=== PATIENT | female | born 1935 | race Caucasian/White ===

== ENCOUNTER → 2018-01-10 | Outpatient (CLI) | payer MEDICARE, BC ==
[~2018-01-10] MED LIST: BEDSIDE COMMODE1 MI1; COUM1TAB PO; DICL1KIT5 TOPICAL; DILT120C50 PO; FOSA70TA PO; LORA0.5T PO; MACR100C2 PO; NORC5TAB PO; TAMS0.4C4 PO; TIMO0.5S30 EACH EYE; TRAM50TA PO; WALKER WHEELS/F1 MIS
[2018-01-10 14:06] LABS: AUTOMATED NEUTROPHIL # 5.5 TH/MM3 (1.8-7.7); BASOPHIL # 0.1 TH/MM3 (0-0.2); BASOPHIL % 0.7 % (0.0-2.0); EOSINOPHIL # 0.2 TH/MM3 (0-0.4); EOSINOPHIL % 2.1 % (0.0-4.0); HEMATOCRIT 40.7 % (35.0-46.0); HEMOGLOBIN 13.9 GM/DL (11.6-15.3); LYMPH % 11.8 % (9.0-44.0); LYMPHOCYTE # 0.9 TH/MM3 (1.0-4.8); MEAN CELL VOLUME 100.8 FL (80.0-100.0); MEAN CORPUSCULAR HEMOGLOBIN 34.3 PG (27.0-34.0); MEAN CORPUSCULAR HGB CONC 34.1 % (32.0-36.0); MEAN PLATELET VOLUME 9.2 FL (7.0-11.0); MONO % 13.4 % (0.0-8.0); PLATELET COUNT 270 TH/MM3 (150-450); RED BLOOD COUNT 4.04 MIL/MM3 (4.00-5.30); RED CELL DISTRIBUTION WIDTH 12.8 % (11.6-17.2); WHITE BLOOD COUNT 7.7 TH/MM3 (4.0-11.0)
[2018-01-10 14:36] LABS: BACTERIA, URINE OCC /hpf; BILIRUBIN, URINE NEG (NEG); BLOOD, URINE TRACE (NEG); GLUCOSE,URINE NEG (NEG); HYALINE CAST, URINE 3 /lpf (RARE); KETONE, URINE NEG (NEG); MUCUS URINE FEW /lpf (OCC); NITRITE,URINE NEG (NEG); PH, URINE 6.5 (5.0-8.5); SQUAMOUS EPITHELIAL CELL URINE 21 /hpf (0-5); TRANSITIONAL EPI CELLS, URINE 4 /hpf; URINE COLOR YELLOW (YELLW/STRAW); URINE LEUKOCYTE ESTERASE LARGE (NEG)
[2018-01-10 14:40] LABS: BICARBONATE 32.8 MEQ/L (21.0-32.0); CALCIUM 9.4 MG/DL (8.5-10.1); CREATININE 0.51 MG/DL (0.50-1.00)
--- NOTE | 2018-01-11 18:30 | EKG ---
Date Performed: 01/10/2018 Time Performed: 12:06:40 PTAGE: 82 years EKG: Sinus rhythm NORMAL ECG NO PREVIOUS TRACING DOCTOR: Baldo Burch Interpretating Date/Time 01/11/2018 18:28:08
== END ==
LOC: CPRE 11:32
PROVIDERS: ATTEND Orthopaedic Surgery Orthopaedic Surgery of the Spine
DX: Z01.812 Encounter for preprocedural laboratory examination (principal); Z01.810 Encounter for preprocedural cardiovascular examination; M16.11 Unilateral primary osteoarthritis, right hip; R82.99 Other abnormal findings in urine
CPT/HCPCS: 36415; 80048; 81001; 85025; 87086; 93005

== ENCOUNTER 2018-01-17 09:43 | Inpatient (IN) | payer MEDICARE, BC ==
[~2018-01-17] VITALS: Ht 154.9 cm; Wt 48.7 kg
[~2018-01-17 09:43] MED LIST changes: -BEDSIDE COMMODE1 MI1; -COUM1TAB PO; -MACR100C2 PO; -NORC5TAB PO; -TAMS0.4C4 PO; -WALKER WHEELS/F1 MIS
[2018-01-17] MEDS ORDERED: POVIDONE IODINE 5% (ANTISEPSIS KIT) 4 APPLICATIONS EACH NARE PRN (10:45)
[2018-01-17] MEDS ORDERED: METOPROLOL TARTRATE 25 MG TAB PO PRN (10:45)
[2018-01-17] MEDS ORDERED: INSULIN HUMAN REGULAR 1,000 UNITS/10 ML VIAL SQ PRN (10:45)
[2018-01-17] MEDS ORDERED: VANCOMYCIN 1000 MG/NS 250 ML (for <70 kg) IV SCH ×2 (10:45)
[2018-01-17] MEDS ORDERED: CHLORHEXIDINE GLUCONATE 2 % 1 PACK (2 CLOTHS) TOPICAL PRN (10:45)
[2018-01-17] MEDS ORDERED: LACTATED RINGER'S 1000 ML IV PRN (10:45)
[2018-01-17] MEDS ORDERED: CHLORHEXIDINE GLUCONATE 4% SOLN 120 ML BTL TOPICAL SCH (10:45)
[2018-01-17] MEDS ORDERED: SODIUM CHLORID 0.9% 500 ML IV PRN (10:45)
[2018-01-17] MEDS ORDERED: ceFAZolin 2 GM PREMIX 50 ML IV SCH (10:45)
[2018-01-17] MEDS ORDERED: LIDOCAINE HCL 1% PF 5 ML SYRINGE OTHER ONE (12:00)
[2018-01-17] MEDS ORDERED: ceFAZolin INJ 1,000 MG VIAL IV ONE (12:00)
[2018-01-17] MEDS ORDERED: ROCURONIUM INJ 50 MG/5 ML SYRINGE IV PUSH ONE (12:00)
[2018-01-17] MEDS ORDERED: PROPOFOL 200 MG/20 ML AMP IV ONE (12:00)
[2018-01-17] MEDS ORDERED: ONDANSETRON HCL 4 MG/2 ML VIAL IV ONE (12:00)
[2018-01-17] MEDS ORDERED: ePHEDrine/NS 25 MG/5 ML SYRINGE IV ONE (12:00)
[2018-01-17] MEDS ORDERED: GLYCOPYRROLATE 1 MG/5 ML SYRINGE IV PUSH ONE (12:00)
[2018-01-17] MEDS ORDERED: PHENYLEPH/NS 1000 MCG/10 ML SYR IV ONE (12:00)
[2018-01-17] MEDS ORDERED: NEOSTIGMINE 5 MG/5 ML SYRINGE IV PUSH ONE (12:00)
[2018-01-17] MEDS ORDERED: GENTAMICIN SULFATE 80 MG/2 ML VIAL ONE (12:42)
[2018-01-17] MEDS ORDERED: DO NOT ADM ANY ANTICOAGULANT DRUGS PRN (15:30)
[2018-01-17] MEDS ORDERED: Post-op Orders (for Pharmacy) XX ONE (15:30)
--- NOTE | 2018-01-17 15:36 | HHI.FF ---
Face to Face Verification Diagnosis: (1) Fracture of femoral neck, late effect (2) Osteoarthritis of right hip (3) Osteonecrosis of right hip Physical Therapy Gait training Hip: Total hip, Protocol: Right, Posterior hip precautions Right LE Weight Bearing: WB as tolerated Left LE Weight Bearing: WB as tolerated Nursing RN Days per Week: 3 x Week(s): 4 Nursing: Dressing changes (clean incision with alcohol and apply dry sterile dressing ) Additional Instructions Pt/INR q Wednesday and , call/text results to Dimple MCCLURE [phone] Goal INR 1.5-1.8 I have seen patient Angelina Leavitt on 01/17/18. My clinical findings support the need for the requested home health care services because: High risk of falls I certify that my clinical findings support that this patient is homebound because: Post-op weakness Berny Torre MD Jan 17, 2018 15:36
[2018-01-17] MEDS ORDERED: WALKER WHEELS/F1 MIS (15:37)
[2018-01-17] MEDS ORDERED: MORPHINE SULFATE 4 MG/ML INJ ONE (15:37)
[2018-01-17] MEDS ORDERED: BEDSIDE COMMODE1 MI1 (15:37)
--- NOTE | 2018-01-17 15:37 | HHI.PR ---
Immediate Post Op Note Procedure Date: Jan 17, 2018 Pre Op Diagnosis: R Hip Femoral Neck Fx non-union,OA,ON;S/P R Hip FN Fx ORIF Post Op Diagnosis: Same Surgeon: Berny Torre MD Acetylene Burner(s): Dimple Johnson PA-C Procedure: R THR conversion from previous hip surgery Complications: None Specimen(s) removed: None Estimated blood loss: 300cc Anesthesia: General Drains: None Patient to: PACU Patient Condition: Good Implant/Devices: SEE IMPLANT LOG (if applicable) Date/Time of Procedure: SEE SURGICAL CARE RECORD Berny Torre MD Jan 17, 2018 15:37
[2018-01-17] MEDS ORDERED: *morphine SULFATE 10 MG/ML PERIprocedure ONLY ONE (15:38)
[2018-01-17] MEDS: LACTATED RINGER'S 1000 ML INJ 1,000 ML IV SCH (15:45)
[2018-01-17] MEDS ORDERED: ALUMINUM/MAGNESIUM/SIMETH 30 ML CUP PO PRN (16:00)
[2018-01-17] MEDS ORDERED: ONDANSETRON HCL 4 MG/2 ML VIAL IVP PRN (16:00)
[2018-01-17] MEDS ORDERED: ZOLPIDEM TARTRATE 5 MG TAB PO PRN (16:00)
--- NOTE | 2018-01-17 16:37 | RADRPT ---
EXAM DATE/TIME: 01/17/2018 15:37 [facility] COMPARISON: No previous studies available for comparison. INDICATIONS : Post right hip arthroplasty MEDICAL HISTORY : Arthritis. SURGICAL HISTORY : None. ENCOUNTER: Initial ACUITY: 1 day PAIN SCORE: Non-responsive. LOCATION: Right Hip FINDINGS: Postoperative findings from noncemented total hip arthroplasty on the right side with prominent areas of deep soft tissue gas. The alignment of the hip endoprosthesis is maintained. There is diffuse o steopenia with intact bony pelvic ring. CONCLUSION: Expected postoperative findings (soft tissue gas) from right total hip arthroplasty. Kushal Flores MD on January 17, 2018 at 16:34 Board Certified Radiologist. This report was verified electronically.
[2018-01-17 19:29] VITALS: BP 114/53; PULSE 75; RESP 18; TEMP 96.7; O2SAT 99
[2018-01-17] MEDS: MORPHINE SULFATE 8 MG/ML INJ IV PUSH PRN (20:02)
[2018-01-17 23:30] VITALS: BP 129/58; PULSE 86; RESP 17; TEMP 97.3; O2SAT 97
[2018-01-18] VITALS (7 sets, daily range): BP systolic 107–136; BP diastolic 55–63; PULSE 80–100; RESP 16–18; TEMP 95.8–97.7; O2SAT 95–100
[2018-01-18] MEDS: ACETAMINOPHEN/HYDROcodone 325 MG/5 MG TAB PO PRN ×4 (00:16→21:41)
[2018-01-18] MEDS: MORPHINE SULFATE 8 MG/ML INJ IV PUSH PRN ×2 (03:10→11:59)
[2018-01-18] MEDS: LACTATED RINGER'S 1000 ML INJ 1,000 ML IV SCH ×2 (05:49→15:00)
--- NOTE | 2018-01-18 06:49 | PD.ORT.PN ---
Subjective Subjective Remarks POD#1 R THR C/O post op pain No c/o chest pain/sob Explained to patient operative findings Objective Vitals Vital Signs Date Time Temp Pulse Resp B/P (MAP) Pulse Ox O2 Delivery O2 Flow Rate FiO2 01/18/18 04:30 97.7 82 16 107/59 (75) 98 01/17/18 23:30 97.3 86 17 129/58 (81) 97 01/17/18 19:29 96.7 75 18 114/53 (73) 99 01/17/18 19:00 64 12 104/54 (71) 100 Nasal Cannula 2 01/17/18 18:00 68 24 116/58 (77) 95 Nasal Cannula 2 01/17/18 17:00 97.1 59 12 107/53 (71) 100 Nasal Cannula 2 01/17/18 16:30 57 12 98/50 (66) 100 Nasal Cannula 2 01/17/18 16:15 56 12 95/52 (66) 100 Nasal Cannula 2 01/17/18 16:00 61 12 98/52 (67) 100 Nasal Cannula 2 01/17/18 15:45 65 23 103/56 (72) 98 Nasal Cannula 4 01/17/18 15:28 97.2 74 12 98/56 (70) 96 Nasal Cannula 4 01/17/18 11:08 98.3 79 20 144/75 (98) 100 I/O 01/17/18 01/17/18 01/17/18 01/18/18 01/18/18 01/18/18 07:00 15:00 23:00 07:00 15:00 23:00 Intake Total 700 ml 480 ml Output Total 300 ml Balance 400 ml 480 ml Intake Oral 480 ml IV Total 700 ml Output Estimated Blood Loss 300 ml # Voids 0 # Bowel Movements 0 Objective Remarks N/V intact No calf tenderness;neg manny's sign No LLD Assessment & Plan Assessment and Plan Ortho stable PT/Rehab D/C home tomorrow Coumadin,TEDS,sequentials for DVT prophylaxsis Berny Torre MD Jan 18, 2018 06:49
[2018-01-18 07:13] LABS: HEMOGLOBIN 9.8 GM/DL (11.6-15.3)
[2018-01-18 07:18] LABS: INTERNATIONAL NORMALIZED RATIO 1.4 RATIO
[2018-01-18] MEDS: DILTIAZEM-CD 120 MG CAP ER PO SCH (08:04)
[2018-01-18] MEDS: TIMOLOL MALEATE 0.5% OPHT SOLN 5 ML BTL EACH EYE SCH (08:35)
[2018-01-18] MEDS ORDERED: PNEUMOCOCCAL POLYVALENT INJ 25 MCG/0.5 ML SYR IM ONE (10:00)
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
[2018-01-18] MEDS ORDERED: DO NOT ADM ANY ANTICOAGULANT DRUGS OTHER PRN (14:45)
[2018-01-18] MEDS: WARFARIN SOD 1 MG TAB PO SCH (15:00)
[2018-01-18] MEDS: LORazepam 0.5 MG TAB PO PRN (15:05)
[2018-01-18] MEDS: DOCUSATE SODIUM 100 MG CAP PO SCH (21:40)
[2018-01-19] VITALS (7 sets, daily range): BP systolic 110–141; BP diastolic 57–70; PULSE 90–116; RESP 16–18; TEMP 95.5–98; O2SAT 94–99
[2018-01-19] MEDS: LACTATED RINGER'S 1000 ML INJ 1,000 ML IV SCH ×2 (05:30→15:46)
[2018-01-19] MEDS: ACETAMINOPHEN/HYDROcodone 325 MG/5 MG TAB PO PRN ×4 (05:58→16:57)
[2018-01-19 06:54] LABS: INTERNATIONAL NORMALIZED RATIO 1.7 RATIO; PROTHROMBIN TIME - PATIENT 17.2 SEC (9.8-11.6)
--- NOTE | 2018-01-19 07:54 | PD.ORT.PN ---
Subjective Subjective Remarks pt doing well, states she slept very well last night ready to be discharged home today Objective Vitals Vital Signs Date Time Temp Pulse Resp B/P (MAP) Pulse Ox O2 Delivery O2 Flow Rate FiO2 01/19/18 06:59 18 01/19/18 01:30 98.0 93 18 116/57 (76) 94 01/18/18 21:55 96.6 86 17 136/63 (87) 95 01/18/18 21:08 95 01/18/18 16:23 18 01/18/18 16:00 95.8 80 18 111/58 (75) 100 01/18/18 12:12 18 01/18/18 11:48 96.6 100 18 115/55 (75) 97 01/18/18 10:10 95 21 I/O 01/18/18 01/18/18 01/18/18 01/19/18 01/19/18 01/19/18 07:00 15:00 23:00 07:00 15:00 23:00 Intake Total 2060 ml 720 ml 480 ml Output Total 600 ml 500 ml 550 ml 1500 ml Balance 1460 ml 220 ml -550 ml -1020 ml Intake Oral 960 ml 720 ml 480 ml IV Total 1100 ml Output Urine Total 600 ml 500 ml 550 ml 1500 ml Bladder Scan Volume Amount 313 ml 340 ml 340 ml # Voids 0 1 # Bowel Movements 0 0 0 Result Diagram: 01/18/18 0420 Other Results Laboratory Tests Test 01/19/18 06:16 Prothromb Time International Ratio 1.7 RATIO Prothrombin Time 17.2 SEC (9.8-11.6) Objective Remarks right hip dressing dry and intact N/V intact No calf tenderness;neg manny's sign No LLD Assessment & Plan Assessment and Plan POD # 2 s/p R rev EMY Ortho stable PT/Rehab anticipate discharge home today if stable was approached by nurse who voiced patient has been having difficulty voiding and koch had to be placed yesterday recommend d/c koch and if still having problems voiding, contact our office Coumadin 1 mg every other day, TEDS,sequentials for DVT prophylaxis Dimple Johnson Jan 19, 2018 07:54
[2018-01-19] MEDS: DILTIAZEM-CD 120 MG CAP ER PO SCH (08:15)
[2018-01-19] MEDS: TIMOLOL MALEATE 0.5% OPHT SOLN 5 ML BTL EACH EYE SCH (08:15)
[2018-01-19] MEDS: DOCUSATE SODIUM 100 MG CAP PO SCH ×2 (08:15→21:13)
[2018-01-19] MEDS: LORazepam 0.5 MG TAB PO PRN (13:41)
[2018-01-19] MEDS: WARFARIN SOD 1 MG TAB PO SCH (15:46)
[2018-01-20] VITALS: BP 115/56; PULSE 99; RESP 20; TEMP 96.8; O2SAT 91
[2018-01-20] MEDS: ACETAMINOPHEN/HYDROcodone 325 MG/5 MG TAB PO PRN ×3 (00:41→12:35)
[2018-01-20] MEDS ORDERED: LACTULOSE SYRUP 20 GM/30 ML CUP PO PRN (03:15)
[2018-01-20] MEDS ORDERED: MAGNESIUM HYDROXIDE SUSP 30 ML CUP PO PRN (03:15)
[2018-01-20] MEDS ORDERED: SENNOSIDES 8.6 MG TAB PO PRN (03:15)
[2018-01-20] MEDS ORDERED: BISACODYL 10 MG SUPP RECTAL PRN (03:15)
[2018-01-20 06:02] LABS: INTERNATIONAL NORMALIZED RATIO 1.5 RATIO; PROTHROMBIN TIME - PATIENT 15.3 SEC (9.8-11.6)
[2018-01-20] MEDS: LACTATED RINGER'S 1000 ML INJ 1,000 ML IV SCH (06:30)
--- NOTE | 2018-01-20 07:11 | PD.ORT.PN ---
Subjective Subjective Remarks POD#3 R THR C/O post op urinary retension No c/o chest pain/sob Explained to patient operative findings Objective Vitals Vital Signs Date Time Temp Pulse Resp B/P (MAP) Pulse Ox O2 Delivery O2 Flow Rate FiO2 01/20/18 00:00 96.8 99 20 115/56 (75) 91 01/19/18 20:00 96.8 90 18 141/64 (89) 98 01/19/18 18:03 99 21 01/19/18 16:00 95.5 99 16 116/61 (79) 99 01/19/18 14:47 18 01/19/18 12:00 96.4 116 16 110/61 (77) 99 01/19/18 09:47 95 01/19/18 08:00 96.7 101 16 139/70 (93) 95 I/O 01/19/18 01/19/18 01/19/18 01/20/18 01/20/18 01/20/18 07:00 15:00 23:00 07:00 15:00 23:00 Intake Total 480 ml 480 ml Output Total 1500 ml 200 ml Balance -1020 ml 280 ml Intake Oral 480 ml 480 ml Output Urine Total 1500 ml 200 ml Bladder Scan Volume Amount 340 ml # Bowel Movements 0 0 Result Diagram: 01/18/18 0420 Other Results Laboratory Tests Test 01/20/18 04:35 Prothromb Time International Ratio 1.5 RATIO Prothrombin Time 15.3 SEC (9.8-11.6) Objective Remarks right hip dressing dry and intact N/V intact No calf tenderness;neg manny's sign No LLD Koch cath in place Assessment & Plan Assessment and Plan POD # 3 s/p R rev EMY Ortho stable PT/Rehab anticipate discharge home today if stable was approached by nurse who voiced patient has been having difficulty voiding and koch had to be placed yesterday await Urology evaluation for urinary retention Coumadin 1 mg every other day, TEDS,sequentials for DVT prophylaxis Discharge home today;recommend oral suppressive antibiotics for koch;needs f/u with Urology within 5 days. Berny Torre MD Jan 20, 2018 07:11
[2018-01-20] MEDS: DOCUSATE SODIUM 100 MG CAP PO SCH (07:31)
[2018-01-20] MEDS: DILTIAZEM-CD 120 MG CAP ER PO SCH (07:31)
[2018-01-20] MEDS: TIMOLOL MALEATE 0.5% OPHT SOLN 5 ML BTL EACH EYE SCH (07:32)
[2018-01-20 08:00] VITALS: BP 140/65; PULSE 101; RESP 18; TEMP 96.1; O2SAT 95
--- NOTE | 2018-01-20 11:49 | PD.CONS ---
[facility] Service Urology Consult Requested By Dr. Torre Reason for Consult Urinary retention Primary Care Physician Non-Staff Diagnosis: History of Present Illness 82-year-old female with no prior urologic history who is now postop day #3 after undergoing a right total hip replacement procedure. Postoperatively the patient was noted to be in urinary retention necessitating catheterization. Patient denies voiding issues prior to her present hospitalization. Reports that the orthopedic procedure went well without complications. Review of Systems Constitutional: DENIES: Fever, Chills Gastrointestinal: DENIES: Abdominal pain Genitourinary: DENIES: Hematuria Except as stated in HPI: all other systems reviewed are Neg Past Family Social History Past Medical History Cataracts Past Surgical History Status post recent right hip arthroplasty Status post cataract surgery Status post hysterectomy Status post tonsillectomy Reported Medications Refer to EMR Allergies: Coded Allergies: No Known Allergies (Unverified , 01/10/18) Active Ordered Medications Refer to EMR Family History Reviewed and noncontributory Social History Reviewed and noncontributory Physical Exam Vital Signs Date Time Temp Pulse Resp B/P (MAP) Pulse Ox O2 Delivery O2 Flow Rate FiO2 01/20/18 08:31 18 01/20/18 08:00 96.1 101 18 140/65 (90) 95 01/20/18 00:00 96.8 99 20 115/56 (75) 91 01/19/18 20:00 96.8 90 18 141/64 (89) 98 01/19/18 18:03 99 21 01/19/18 16:00 95.5 99 16 116/61 (79) 99 01/19/18 12:00 96.4 116 16 110/61 (77) 99 Physical Exam GENERAL: This is a well-nourished, well-developed patient, in no apparent distress. SKIN: No rashes, ecchymoses or lesions. Cool and dry. HEAD: Atraumatic. Normocephalic. No temporal or scalp tenderness. EYES: Pupils equal round and reactive. Extraocular motions intact. No scleral icterus. No injection or drainage. ENT: Nose without bleeding, purulent drainage or septal hematoma. Throat without erythema, tonsillar hypertrophy or exudate. Uvula midline. Airway patent. NECK: Trachea midline. No JVD or lymphadenopathy. Supple, nontender, no meningeal signs GASTROINTESTINAL: Abdomen soft, non-tender, nondistended. No hepato-splenomegaly , or palpable masses. No guarding. GENITOURINARY: Carty catheter in place draining clear yellow urine. Bladder not distended MUSCULOSKELETAL: Extremities without clubbing, cyanosis, or edema. NEUROLOGICAL: Awake and alert. Normal speech. Lab results reviewed: Yes Laboratory Tests Test 01/20/18 04:35 Prothrombin Time 15.3 Prothromb Time International Ratio 1.5 Result Diagram: 01/18/18 0420 Imaging Last Impressions Hip and Pelvis X-Ray 01/17/18 0000 Signed Impressions: Service Date/Time: Wednesday, January 17, 2018 15:37 - CONCLUSION: Expected postoperative findings (soft tissue gas) from right total hip arthroplasty. Kushal Flores MD Assessment and Plan Assessment and Plan Urologic impression: Postoperative urinary retention of probable transient nature. Recommendations: 1. Flomax 0.4 mg by mouth daily 2. Macrobid 1 by mouth twice daily 3. Discharge home with Carty catheter 4. Office follow-up Wednesday morning to have my office nurse discontinue the Carty catheter for voiding tria [id number]. Rios Andrade MD Jan 20, 2018 11:49
[2018-01-20] MEDS ORDERED: TAMS0.4C4 PO (11:53)
[2018-01-20] MEDS ORDERED: MACR100C2 PO (11:53)
[2018-01-20] MEDS ORDERED: COUM1TAB PO (13:01)
[2018-01-20] MEDS ORDERED: NORC5TAB PO (13:03)
[2018-01-20] MEDS: LORazepam 0.5 MG TAB PO PRN (13:30)
[2018-01-20 13:53] VITALS: RESP 18
== END 2018-01-20 14:05 | disposition home health service (06) | DRG 470 ==
LOC: HSDI 09:43 → EDUNIT# 13:30 → N06B 19:29
PROVIDERS: ADMIT Orthopaedic Surgery Orthopaedic Surgery of the Spine; ATTEND Orthopaedic Surgery Orthopaedic Surgery of the Spine
PROC: 0QP604Z Removal of Internal Fixation Device from Right Upper Femur, Open Approach (ICD-10-PCS; 2018-01-17)
PROC: 0SR90JA Replacement of Right Hip Joint with Synthetic Substitute, Uncemented, Open Approach (ICD-10-PCS; principal; 2018-01-17 13:19)
PROC: 0T9B70Z Drainage of Bladder with Drainage Device, Via Natural or Artificial Opening (ICD-10-PCS; 2018-01-18)
DX: S72.001K Fracture of unspecified part of neck of right femur, subsequent encounter for closed fracture with nonunion (principal); M87.9 Osteonecrosis, unspecified; I10 Essential (primary) hypertension; M16.11 Unilateral primary osteoarthritis, right hip; W01.0XXD Fall on same level from slipping, tripping and stumbling without subsequent striking against object, subsequent encounter; R33.8 Other retention of urine; Z86.718 Personal history of other venous thrombosis and embolism
CPT/HCPCS: 73501; 85014; 85018; 85610; 86850; 86900; 86901; 86920; 94150; C1776; J0690; J1580; J2270; J2370; J2405; J2710; J3010; J3370; J7050; J7120; L1830